=== PATIENT | female | born 2000 | race Two or more races ===

== ENCOUNTER 2024-03-24 18:39 | Emergency (ER) | payer MEDICAID, SELFPAY ==
--- NOTE | 2024-03-24 19:00 | PD.EDRME ---
Rapid Medical Screening Exam RME Arrival date/time: 03/24/24 18:39 Chief Complaint: Skin/Abscess/Foreign Body Time Seen by Provider: 03/24/24 18:58
[2024-03-24 19:16] VITALS: BP 142/69; PULSE 100; RESP 20; TEMP 37.1; O2SAT 100
[2024-03-24 19:18] VITALS: BMI 48.5
--- NOTE | 2024-03-24 19:20 | EDNOTE_ITS ---
ED Skin Abcess FB-RME/HPI General Chief complaint: Skin/Abscess/Foreign Body Stated complaint: ABSCESS UNDER LEFT BREAST Time Seen by Provider: 03/24/24 18:58 Arrival date/time: 03/24/24 18:39 Limitations: no limitations RME / HPI RME / HPI narrative: 03/24/24 18:39 DR. SÁNCHEZ MAIN ED EVALUATION: 23 year old female with no known past medical history presents to the Emergency Department accompanied by the mother with complaint of abscess under the left breast area. The abscess started as a pimple about 3 months ago and in the last 2 weeks it started draining like hard puss material. Patient reports associated pain. Related Data Home Medications ?Medication ?Instructions ?Recorded ?Confirmed naltrexone 8 mg-bupropion 90 mg 2 tab PO BID 09/26/18 09/26/18 tablet,extended release (Contrave) Previous Rx's ?Medication ?Instructions ?Recorded doxycycline hyclate 100 mg capsule 100 mg PO BID #20 caps 03/25/24 Allergies Allergy/AdvReac Type Severity Reaction Status Date / Time No Known Allergies Allergy Verified 03/24/24 18:40 Review of Systems Review of Systems Systems Reviewed: All systems reviewed, normal except as documented Narrative Review of Systems: GEN: No fever, no chills, no weight loss EYES: No discharge, no visual changes, no pain HEENT: No ear pain, no congestion, no sore throat PULM: No shortness of breath, no cough, no congestion CV: No chest pain, no dyspnea on exertion, no palpitations GI: No nausea, no vomiting, no diarrhea, no pain, no constipation : No frequency, no urgency and no dysuria MUSC/SKEL: No joint pain, no back pain SKIN: No rash. + abscess under the left breast area with drainage (see HPI) PSYCH: No hallucinations, no depression HEME/LYMPH: No easy bleeding or bruising tendencies NEURO: No weakness, no headache Past Medical History Social History SMOKING STATUS: Never smoker SUBSTANCE USE: does not use ALCOHOL: Never ED Exam General Limitations: Present no limitations General appearance: Present alert and in no apparent distress Head Head exam: Present atraumatic, normocephalic and normal inspection Eye Eye exam: Present normal appearance, PERRL and EOMI ENT ENT exam: Present normal exam, normal oropharynx and mucous membranes moist Neck Neck exam: Present normal inspection, full ROM and trachea midline Chest Chest inspection: Present normal inspection and symmetric chest wall rise Respiratory Respiratory exam: Present normal lung sounds bilaterally Cardiovascular Cardiovascular exam: Present regular rate, normal rhythm and normal heart sounds Abdominal Exam Abdominal exam: Present soft and normal bowel sounds Extremities Exam Extremities exam: Present normal inspection and full ROM Back Exam Back exam: Present normal inspection and full ROM Neurological Exam Neurological exam: Present alert, oriented X3 and CN II-XII intact Psychiatric Psychiatric exam: Present normal affect and normal mood Skin Skin exam: Present warm, dry, intact and normal color Course Quality Measures none Orders Category Date Time Status Incision & Drainage set up ONCE Care 03/24/24 19:37 Active US sft tissue upper back chest Stat Exams 03/24/24 19:36 Completed Cocci Serology IgM with reflex to IgG [Cocci Serology, Lab 03/24/24 22:25 Received Unk History] Stat Wound Culture and Gram Stain Stat Lab 03/25/24 00:59 Ordered Doxycycline [Vibramycin] Med 03/25/24 00:58 Discontinued 100 mg PO X1 ONE HYDROcodone*/APAP 5/325 [Addison 5/325] Med 03/25/24 00:58 Discontinued 1 tab PO X1 ONE Ibuprofen Susp [Motrin Susp] Med 03/25/24 00:58 Discontinued 600 mg PO X1 ONE Vital Signs Vital signs: Vital Signs Temperature 98.8 F 03/24/24 19:16 Pulse Rate 100 03/24/24 19:16 Respiratory Rate 20 03/24/24 19:16 Blood Pressure 142/69 H 03/24/24 19:16 Pulse Oximetry (%) 100 03/24/24 19:16 Oxygen Delivery Method Room Air 03/24/24 19:16 Procedures -ED Abscess I/D Site: other (Chest wall left breast) Side (if applicable): left Local Anesthetic: lidocaine 1% Amount of anesthesia used (mL): 10 Technique: incised with #11 blade Amount of fluid expressed (mL): 10 Irrigation: Yes Packing used?: plain Complications: other (None) Skin / Abscess / Foreign Body MDM Narrative MDM Narrative:: Celi Bruce am scribing for and in the presence of Dr. Sánchez. Patient data External records reviewed:: [facility] previous records (Reviewed last ED visit dated 09/26/18, discharged with the following: Numbness.) Clinical information provided by:: patient Social determinants that could affect healthcare access:: none Patient has the following chronic illnesses:: No known PMHx, surgeries, daily medications, or known allergies. How is presenting disease/condition affected by chronic disease/condition?: no chronic disease Evaluation data The following diagnostics were reviewed and interpreted by me:: radiology exam(s) Lab and/or radiology exams considered but not ordered:: none Interpretation Summary: Procedure(s): US sft tissue upper back chest Accession Number(s): [id number] cc: Basil Serrano MD; Javier Dalal MD; Stephani Sánchez MD~ Examination: Left breast sonography complete Technique: High resolution sonographic images soft tissue left breast secondary to the knee, left breast Exam date and time: 1999 2410 0 7:00 PM Indications: Painful mass underneath the (beginning 3 months ago. Findings: Hypoechoic fluid collection with indistinct margins below the left breast 1.3 x 0.7 x 6.17 which has a fistulous communications the skin Impression: Findings most consistent with soft tissue abscess at the area of concern Dictated By: Javier Dalal MD Medications / Prescriptions Medications or Prescriptions considered but not ordered:: none Medication administrations:: Medication Administration History Discontinued Medications Hydrocodone Bitart/Acetaminophen (Hydrocodone/Apap 5/325 Tablet) 1 tab PO X1 ONE Stop: 03/25/24 00:59 Doxycycline Hyclate (Doxycycline 100 Mg Tablet) 100 mg PO X1 ONE Stop: 03/25/24 00:59 Ibuprofen (Ibuprofen Susp 100 Mg/5 Ml Udc) 600 mg PO X1 ONE Stop: 03/25/24 00:59 see above if any Consultations Consultation(s) initiated? (list below): No Consultation #1 (Physician, Specialty, Details): None Diagnosis Skin/Abscess Differential Diagnosis: abscess of skin or subcutaneous tissue, cellulitis and other (boil, wound infection) Most likely diagnosis given after review of the tests above:: see below Admission Indicated Admission indicated?: not indicated Explain why admission is indicated or not indicated:: No Admission Request Was there a request for admission?: No Disposition Plan Disposition Plan: Discharge Discharge Attestation Discharge Attestation: The patient and all family members were given an opportunity to ask questions and understood the discharge instructions. Discharge instructions specifically effects, indications for sooner follow up or return to the emergency department, and the expected course of current diagnosis. Patient condition: Stable Discharge Plan Plan Patient Disposition: HOME (Self Care) Patient condition on transfer: Stable Prescriptions/Referrals Prescriptions/Med Rec: New doxycycline hyclate 100 mg capsule 100 mg PO BID Qty: 20 0RF No Action Contrave 8-90 mg Tablet Extended Release 2 tab PO BID Referrals: Basil Serrano MD [Primary Care Provider] - In 1 week Shruthi Enriquez MD [Physician] - In 1 week (Please call to get a referral to ensure that the sebaceous cyst does not have to be completely removed.) Problem List Clinical Impression: Sebaceous cyst Patient/Caregiver Discharge Instructions Education Materials: Epidermoid Cyst Infect Antibiotics Additional Instructions: 1.You will most likely need the sebaceous cyst wall removed if this recurs again. Today we able to open up the drainage area and pack it with packing material. 2. Ensure that stays in for 48 hours and return to the emergency department for recheck. The goal is for it to heal from the inside out. 3. Take the antibiotics as prescribed. If you are using control you will have to find alternate use of the control for the next 30 days. 4. Return in [address] Merlos who is a female will be here at 2:00 on 26 March. Return sooner if you are having fevers, increasing pain, or any other concerns. You can take [id number] Tylenol 650 mg and/or Motrin 600 mg 3 times a day for the next few days. 5. You will need to get the results of the wound culture in the next 48 to 72 hours to ensure that the antibiotic I chose tonight which is doxycycline covers that infection. Print Language: Sami Stand Alone Forms: Joan Award Info., Patient Portal Info Letter
--- NOTE | 2024-03-24 19:36 | XR_ITS ---
Examination: Left breast sonography complete Technique: High resolution sonographic images soft tissue left breast secondary to the knee, left breast Exam date and time: 1999 2410 0 7:00 PM Indications: Painful mass underneath the (beginning 3 months ago. Findings: Hypoechoic fluid collection with indistinct margins below the left breast 1.3 x 0.7 x 6.17 which has a fistulous communications the skin Impression: Findings most consistent with soft tissue abscess at the area of concern
[2024-03-25 00:10] VITALS: BP 129/84; PULSE 91; RESP 19; TEMP 36.6; O2SAT 100
[2024-03-25] MEDS: HYDROcodone/APAP 5/325 TABLET 1 TAB PO (01:35)
[2024-03-25] MEDS: DOXYCYCLINE 100 MG TABLET PO (01:36)
[2024-03-25] MEDS: IBUPROFEN SUSP 100 MG/5 ML UDC 600 MG PO (01:37)
[2024-03-25 14:35] LABS: Cocci Serology, IgM Positive (Negative)
[2024-03-25 14:36] LABS: Cocid Sro, CF/ID (UCD) NO CHG* See Sep Rpt
== END 2024-03-25 01:44 | disposition home or self-care (01) ==
PROVIDERS: Nurse Practitioner Family; Emergency Provider Emergency Medicine; PCP Family Medicine
DX: L72.3 Sebaceous cyst (principal)
CPT/HCPCS: 10060; 36415; 76604; 86635; 87070; 87077; 87186; 87205; 99284; A9270

== ENCOUNTER 2024-03-26 13:53 | Emergency (ER) | payer MEDICAID, SELFPAY ==
[2024-03-26 14:12] VITALS: BP 120/78; PULSE 84; RESP 18; TEMP 36.6; O2SAT 97; BMI 38.0
--- NOTE | 2024-03-26 14:15 | EDNOTE_ITS ---
ED Wound/Laceration-RME/HPI General Chief Complaint: Wound Recheck / Suture Removal Stated Complaint: WOUND RECHECK TO LEFT BREAST Time Seen by Provider: 03/26/24 14:05 Arrival date/time: 03/26/24 13:53 23-year-old female presents emergency department today states she had an I&D of her left breast in the emergency department yesterday patient requesting packing removal and reevaluation Limitations: no limitations Related Data Home Medications ?Medication ?Instructions ?Recorded ?Confirmed naltrexone 8 mg-bupropion 90 mg 2 tab PO BID 09/26/18 09/26/18 tablet,extended release (Contrave) Previous Rx's ?Medication ?Instructions ?Recorded doxycycline hyclate 100 mg capsule 100 mg PO BID #20 caps 03/25/24 Allergies Allergy/AdvReac Type Severity Reaction Status Date / Time No Known Allergies Allergy Verified 03/26/24 13:55 Review of Systems Review of Systems Systems Reviewed: All systems reviewed, normal except as documented Constitutional Constitutional: Reports system reviewed and no additional complaints, except as documented, Denies fever(s) and Denies headache(s) Eyes Eyes: Reports system reviewed and no additional complaints, except as documented and Denies blurry vision ENT Ears, Nose, Mouth, and Throat: Reports system reviewed and no additional complaints, except as documented, Denies headache(s), Denies nasal congestion and Denies nasal discharge Cardiovascular Cardiovascular: Reports system reviewed and no additional complaints, except as documented, Denies chest pain and Denies dyspnea Respiratory Respiratory: Reports system reviewed and no additional complaints, except as documented, Denies chest congestion, Denies cough and Denies dyspnea Gastrointestinal Gastrointestinal: Reports system reviewed and no additional complaints, except as documented and Denies abdominal pain Integumentary/Breasts Skin/Breast: Reports system reviewed and no additional complaints, except as documented, Denies rash and Reports other (Abscess versus cyst left breast) Neurologic Neurologic: Reports system reviewed and no additional complaints, except as documented, Reports as per HPI and Denies headache(s) Past Medical History Past Medical History CARDIAC: Negative Congestive Heart Failure RESPIRATORY: Negative Chronic Obstructive Pulmonary Disease (COPD) GENITOURINARY: Negative Renal Disease ENDOCRINE: Negative Diabetes Mellitus Type 1 or Diabetes Mellitus Type 2 Social History SMOKING STATUS: Never smoker SUBSTANCE USE: does not use ED Exam General Limitations: Present no limitations General appearance: Present alert and in no apparent distress Head Head exam: Present atraumatic Eye Eye exam: Present normal appearance, PERRL and EOMI ENT ENT exam: Present normal exam, normal oropharynx and mucous membranes moist Neck Neck exam: Present normal inspection, full ROM and trachea midline Chest Chest inspection: Present normal inspection and symmetric chest wall rise Respiratory Respiratory exam: Present normal lung sounds bilaterally Cardiovascular Cardiovascular exam: Present regular rate, normal rhythm and normal heart sounds Abdominal Exam Abdominal exam: Present soft and normal bowel sounds Extremities Exam Extremities exam: Present normal inspection and full ROM Back Exam Back exam: Present normal inspection and full ROM Neurological Exam Neurological exam: Present alert, oriented X3 and CN II-XII intact Psychiatric Psychiatric exam: Present normal affect and normal mood Skin Skin exam: Present warm, dry and other (Abscess versus cyst left breast I&D performed on last visit no surrounding erythema) Course Quality Measures none Vital Signs Vital signs: Vital Signs Temperature 98 F 03/26/24 14:12 Pulse Rate 84 03/26/24 14:12 Respiratory Rate 18 03/26/24 14:12 Blood Pressure 120/78 03/26/24 14:12 Pulse Oximetry (%) 97 03/26/24 14:12 Oxygen Delivery Method Room Air 03/26/24 14:12 O2 saturation 97% room air within normal limits Wound / Laceration MDM Narrative MDM Narrative:: 23-year-old female presents emergency department today states she had an I&D of her left breast in the emergency department yesterday patient requesting packing removal and reevaluation On exam patient breast has packing in place patient has no erythema or swelling reports symptoms have improved Symptoms were consistent with sebaceous cyst which was infected per the history but looks like it has significantly improved per the patient Packing is removed and is entirely new dressing applied Patient instructed to continue taking antibiotics and follow-up with specialist Patient discharged home in no distress to follow-up with primary care doctor in the next 24 to 48 hours and for any worsening symptoms to return to the ER immediately Patient data External records reviewed:: [facility] previous records Clinical information provided by:: patient Social determinants that could affect healthcare access:: none Patient has the following chronic illnesses:: None How is presenting disease/condition affected by chronic disease/condition?: no chronic disease Evaluation data The following diagnostics were reviewed and interpreted by me:: other (specify) (N/A) Lab and/or radiology exams considered but not ordered:: No meds Interpretation Summary: No meds Medications / Prescriptions Medications or Prescriptions considered but not ordered:: No meds Medication administrations:: No meds Consultations Consultation(s) initiated? (list below): No Diagnosis Wound Differential Diagnosis: laceration, abscess and avulsion of skin Most likely diagnosis given after review of the tests above:: Sebaceous cyst Admission Indicated Admission indicated?: not indicated Admission Request Was there a request for admission?: No Disposition Plan Disposition Plan: Discharge Discharge Attestation Discharge Attestation: The patient and all family members were given an opportunity to ask questions and understood the discharge instructions. Discharge instructions specifically effects, indications for sooner follow up or return to the emergency department, and the expected course of current diagnosis. Patient condition: Stable Discharge Plan Plan Patient Disposition: HOME (Self Care) Disposition Comment: Stable Prescriptions/Referrals Prescriptions/Med Rec: No Action Contrave 8-90 mg Tablet Extended Release 2 tab PO BID doxycycline hyclate 100 mg capsule 100 mg PO BID Qty: 20 0RF Problem List Clinical Impression: Sebaceous cyst Patient/Caregiver Discharge Instructions Additional Instructions: Please follow up with your primary care doctor in the next 24-48hrs for any wo rsening symptoms return here immediately Please take all antibiotics as prescribed Print Language: Malay Stand Alone Forms: Joan Award Info., Patient Portal Info Letter KAREN/BRYSON Supervising Physician KAREN/BRYSON Supervising Physician: Dr Vargas
== END 2024-03-26 14:18 | disposition home or self-care (01) ==
LOC: SERX 14:23
PROVIDERS: Emergency Provider Emergency Medicine; PCP Family Medicine
DX: L72.3 Sebaceous cyst (principal)
CPT/HCPCS: 99282

== ENCOUNTER 2024-06-30 12:54 | Emergency (ER) | payer MEDICAID, SELFPAY ==
--- NOTE | 2024-06-30 13:05 | EDNOTE_ITS ---
ED Skin Abcess FB-RME/HPI General Chief complaint: Skin/Abscess/Foreign Body Stated complaint: ABSCESS BELOW LEFT BREAST Time Seen by Provider: 06/30/24 12:58 Arrival date/time: 06/30/24 12:54 RME / HPI RME / HPI narrative: DR. ORDONEZ MAIN ED EVALUATION: 23 year old female with no known past medical history presents to the Emergency Department with complaint of skin lesion under the left breast area. Patient states she has had a skin problem in this area since last year which comes and goes. Occasionally enlarges then spontaneously exudes thick whitish material. Previously developed an abscess there which was I&D'd here 03/27. No recent drainage however lesion has started to enlarge again, and two additional spots have started to develop next to it. Related Data Home Medications ?Medication ?Instructions ?Recorded ?Confirmed naltrexone 8 mg-bupropion 90 mg 2 tab PO BID 09/26/18 09/26/18 tablet,extended release (Contrave) Previous Rx's ?Medication ?Instructions ?Recorded doxycycline hyclate 100 mg capsule 100 mg PO BID #20 c aps 03/25/24 Allergies Allergy/AdvReac Type Severity Reaction Status Date / Time No Known Allergies Allergy Verified 03/26/24 13:55 Review of Systems Review of Systems Systems Reviewed: All systems reviewed, normal except as documented Past Medical History Past Medical History CARDIAC: Negative Congestive Heart Failure RESPIRATORY: Negative Chronic Obstructive Pulmonary Disease (COPD) GENITOURINARY: Negative Renal Disease ENDOCRINE: Negative Diabetes Mellitus Type 1 or Diabetes Mellitus Type 2 Social History SMOKING STATUS: Never smoker SUBSTANCE USE: does not use ALCOHOL: Never ED Exam Narrative Physical exam: GENERAL APPEARANCE: alert and oriented x 4, well-developed, well-nourished, no acute distress VITALS: All vitals were reviewed and the pulse ox is 96% on room air, which is normal according to my interpretation. HEENT: Normocephalic, atraumatic; pupils equal, round, reactive to light; EOMI; mucous membranes pink, moist; oropharynx clear NECK: Supple LUNGS: CTABL; no wheezes, no rales, no rhonchi HEART: Regular rate, regular rhythm; normal S1, S2; no murmurs ABDOMEN: non distended; normal BS; soft, no tenderness, no guarding, no rebound; no masses, no organomegaly, no hernia BACK: no CVA tenderness EXTREMITIES: atraumatic; no edema NEUROLOGIC: awake; alert and oriented x4; cranial nerves II-XII grossly intact; no focal sensory or motor deficits PSYCHIATRIC: appropriate mood and affect SKIN: warm, dry, normal color; no rashes; there is an area of thin skin with capsule epidermal inclusion cyst x3. Course Quality Measures none Orders Category Date Time Status Lidocaine 1% 20 ml [Xylocaine 1% 20 ML] Med 06/30/24 13:06 Discontinued 10 ml INFL X1 ONE Vital Signs Vital signs: Vital Signs Temperature 98.7 F 06/30/24 13:57 Pulse Rate 80 06/30/24 13:57 Respiratory Rate 18 06/30/24 13:57 Blood Pressure 136/85 H 06/30/24 13:57 Pulse Oximetry (%) 96 06/30/24 13:57 Oxygen Delivery Method Room Air 06/30/24 13:57 Procedures -ED Procedure Comment There was an area of thin skin with capsule epidermal inclusion cyst x3, I/D of abscess completed (see below). Also, closed with 4-0 prolene sutures. No complications. Patient tolerated the procedure well. Abscess I/D Site: other (Chest wall left breast) Side (if applicable): left Sedation/analgesia: none Local Anesthetic: lidocaine 1% Amount of anesthesia used (mL): 10 Technique: incised with #11 blade Amount of fluid expressed (mL): 1 Irrigation: Yes Packing used?: plain Complications: other (none, patient tolerated procedure well) Skin / Abscess / Foreign Body MDM Narrative MDM Narrative:: ICeli am scribing for and in the presence of Dr. Ordonez. Patient data External records reviewed:: [facility] previous records (Reviewed last ED visit dated 03/26/24, discharged with the following: Sebaceous cyst) Clinical information provided by:: patient Social determinants that could affect healthcare access:: none Patient has the following chronic illnesses:: Denies any PMHx, surgeries, daily medications, or known allergies. How is presenting disease/condition affected by chronic disease/condition?: no chronic disease Evaluation data The following diagnostics were reviewed and interpreted by me:: other (specify) (none) Lab and/or radiology exams considered but not ordered:: none Interpretation Summary: n/a Medications / Prescriptions Medications or Prescriptions considered but not ordered:: none Medication administrations:: Medication Administration History Discontinued Medications Lidocaine HCl (Lidocaine Hcl 1% 20 Ml Vial) 10 ml INFL X1 ONE Stop: 06/30/24 13:07 Last Admin: 06/30/24 13:57 Dose: 10 ml Documented By: see above Consultations Consultation(s) initiated? (list below): No Diagnosis Skin/Abscess Differential Diagnosis: abscess of skin or subcutaneous tissue, cellulitis and other (boil, wound infection) Most likely diagnosis given after review of the tests above:: Epidermal inclusion cyst History of epidermal inclusion cyst excision Admission Indicated Admission indicated?: not indicated Admission Request Was there a request for admission?: No Disposition Plan Disposition Plan: Discharge Discharge Attestation Discharge Attestation: The patient and all family members were given an opportunity to ask questions and understood the discharge instructions. Discharge instructions specifically effects, indications for sooner follow up or return to the emergency department, and the expected course of current diagnosis. Patient condition: Stable Discharge Plan Plan Patient Disposition: HOME (Self Care) Prescriptions/Referrals Prescriptions/Med Rec: No Action Contrave 8-90 mg Tablet Extended Release 2 tab PO BID doxycycline hyclate 100 mg capsule 100 mg PO BID Qty: 20 0RF Referrals: Basil Serrano MD [Primary Care Provider] - In 1 week Problem List Clinical Impression: Epidermal inclusion cyst, History of epidermal inclusion cyst excision Patient/Caregiver Discharge Instructions Education Materials: Suture Care, ED Epidermoid Cyst, No Infection Print Language: Kinyarwanda Stand Alone Forms: Joan Award Info., Patient Portal Info Letter
[2024-06-30 13:57] VITALS: BP 136/85; PULSE 80; RESP 18; TEMP 37.1; O2SAT 96
[2024-06-30] MEDS: LIDOCAINE HCL 1% 20 ML VIAL 10 ML INFL (13:57)
== END 2024-06-30 15:51 | disposition home or self-care (01) ==
PROVIDERS: Emergency Provider Emergency Medicine; PCP Family Medicine
DX: L72.0 Epidermal cyst (principal)
CPT/HCPCS: 10060; 99283; J3490

== ENCOUNTER 2024-07-07 08:30 | Emergency (ER) | payer MEDICAID, SELFPAY ==
[2024-07-07 09:11] VITALS: BP 127/81; PULSE 72; RESP 19; TEMP 36.6; O2SAT 99; BMI 47.9
--- NOTE | 2024-07-07 09:24 | PD.EDWOUND ---
ED Wound/Laceration-RME/HPI General Chief Complaint: Wound Recheck / Suture Removal Stated Complaint: CHECK MY SUTURES OUT Time Seen by Provider: 07/07/24 08:45 Arrival date/time: 07/07/24 08:30 Limitations: no limitations RME / HPI RME / HPI narrative: 24-year-old female here for suture removal. States was having a cyst under her left breast that was complicating and hurting had cyst removed and was put sutures over a week ago but was not told when to follow-up. No fevers. Has not removed gauze. States gauze is crusted down she is worried. No history of diabetes. No fever. Related Data Home Medications ?Medication ?Instructions ?Recorded ?Confirmed naltrexone 8 mg-bupropion 90 mg 2 tab PO BID 09/26/18 09/26/18 tablet,extended release (Contrave) Previous Rx's ?Medication ?Instructions ?Recorded doxycycline hyclate 100 mg capsule 100 mg PO BID #20 caps 03/25/24 Allergies Allergy/AdvReac Type Severity Reaction Status Date / Time No Known Allergies Allergy Verified 07/07/24 08:32 Review of Systems Review of Systems Systems Reviewed: All systems reviewed, normal except as documented Integumentary/Breasts Skin/Breast: Reports as per HPI ED Exam General Limitations: Present no limitations General appearance: Present alert and in no apparent distress Eye Eye exam: Present normal appearance, PERRL and EOMI Respiratory Respiratory exam: Present normal lung sounds bilaterally Cardiovascular Cardiovascular exam: Present regular rate, normal rhythm and normal heart sounds Abdominal Exam Abdominal exam: Present soft and normal bowel sounds Extremities Exam Extremities exam: Present normal inspection and full ROM Back Exam Back exam: Present normal inspection and full ROM Psychiatric Psychiatric exam: Present normal affect and normal mood Skin Skin exam: Present other (Crusted gauze, [address] Course Quality Measures none Vital Signs Vital signs: Vital Signs Temperature 97.9 F 07/07/24 09:11 Pulse Rate 72 07/07/24 09:11 Respiratory Rate 19 07/07/24 09:11 Blood Pressure 127/81 07/07/24 09:11 Pulse Oximetry (%) 99 07/07/24 09:11 Oxygen Delivery Method Room Air 07/07/24 09:11 Wound / Laceration Patient data External records reviewed:: [facility] previous records Clinical information provided by:: patient Social determinants that could affect healthcare access:: other (specify) (No PCP on the weekend) Patient has the following chronic illnesses:: None How is presenting disease/condition affected by chronic disease/condition?: no chronic disease Evaluation data The following diagnostics were reviewed and interpreted by me:: other (specify) (None) Lab and/or radiology exams considered but not ordered:: No labs warranted based on clinical exam Interpretation Summary: No labs ordered Medications / Prescriptions Medications or Prescriptions considered but not ordered:: Antibiotics were considered however sutures do not appear infected Medication administrations:: No medications given here Consultations Consultation(s) initiated? (list below): No Diagnosis Wound Differential Diagnosis: laceration, abscess, abrasion and avulsion of skin Most likely diagnosis given after review of the tests above:: Suture removal Admission Indicated Admission indicated?: not indicated Admission Request Was there a request for admission?: No Disposition Plan Disposition Plan: Discharge Discharge Attestation Discharge Attestation: The patient and all family members were given an opportunity to ask questions and understood the discharge instructions. Discharge instructions specifically effects, indications for sooner follow up or return to the emergency department, and the expected course of current diagnosis. Patient condition: Stable Discharge Plan Plan Patient Disposition: HOME (Self Care) Disposition Comment: f/u with pcp in 2-3days Prescriptions/Referrals Prescriptions/Med Rec: No Action Contrave 8-90 mg Tablet Extended Release 2 tab PO BID doxycycline hyclate 100 mg capsule 100 mg PO BID Qty: 20 0RF Referrals: Basil Serrano MD [Primary Care Provider] - In 1 week Problem List Clinical Impression: Encounter for removal of sutures Patient/Caregiver Discharge Instructions Education Materials: Suture Care Print Language: Kosovan Stand Alone Forms: Joan Award Info., Patient Portal Info Letter PA/SALES AND DISTRIBUTION CLERK Supervising Physician PA/SALES AND DISTRIBUTION CLERK Supervising Physician: Dr. reynolds
== END 2024-07-07 09:50 | disposition home or self-care (01) ==
PROVIDERS: Emergency Provider Emergency Medicine; PCP Family Medicine
DX: Z48.02 Encounter for removal of sutures (principal)
CPT/HCPCS: 99281